=== PATIENT | male | born 1935 | race Caucasian/White ===

== ENCOUNTER 2016-12-29 14:34 | Inpatient (IN) | payer MEDICARE, OTHER ==
--- NOTE | ~2016-12-29 | HP ---
History And Physical [place] [id number] [place]. [address] NAME: BROOKE KAY : 35 STATUS : ADM IN [facility]#: [id number] AGE: 81 ADM/REG DATE : 12/29/16 MR#: [id number] REPORT SERV DATE: 12/30/16 DICTATED BY: BESSIE VALERIO DATE: 12/30/16 REPORT STATUS : Draft TRANSCRIBED BY: MODChen DATE: 12/30/16 DATE OF ADMISSION: 12/29/2016 CHIEF COMPLAINT: Chest pain. HISTORY OF PRESENT ILLNESS: This is an 81-year-old gentleman with medical history of hypothyroidism, dyslipidemia, BPH, pancreatic insufficiency on pancreatic lipase who presented to the hospital with complaints of right-sided chest pain. The patient reports that he had a ground-level fall about a week ago while he was trying to get into his car. He suffered bruises to his face as well as to his right wrist. EMS was called to the scene. The patient was evaluated at the scene but did not go to the hospital. The patient noted that he had no loss of consciousness, no palpitation, no presyncopal or syncopal episode. He attributed the fall likely due to slip and fall. The patient reports that he was doing well until three days prior to presentation where he developed mild shortness of breath initially but progressively got worse. Also noted pleuritic chest pain on the right side which progressively got worse. Hence, the patient went to his primary care physician for further evaluation. At the primary care physician's office, the patient had a chest x-ray that confirmed the presence of right sided pneumothorax. The patient was then advised to come to the emergency room immediately for further evaluation. On arrival to the emergency room, the patient had a chest tube placed by the emergency room physician. A repeat chest x-ray showed that chest tube is in place with good reexpansion of the lungs. At the time of my evaluation, the patient reports significant improvement in the right-sided pleuritic chest pain, continues to have some mild shortness of breath. No associated fever, chills, cough, palpitations, presyncope, or syncopal episode. PAST MEDICAL HISTORY: 1. Hypothyroidism on levothyroxine. 2. BPH. 3. Renal insufficiency on pancreatic lipase. 4. Dyslipidemia. 5. Chronic kidney disease stage 3, last known creatinine was 3.0. ALLERGIES: NO KNOWN DRUG ALLERGIES. SOCIAL HISTORY: Denies smoking cigarettes, and drinks 2-3 glasses of wine a day. Denies any marijuana or recreational drug use. 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 Recently moved to the [facility] about less than a year ago. FAMILY HISTORY: No family history of lung cancer, coronary artery disease, hypertension, or CVA. PAST SURGICAL HISTORY: Repair of the right femur fracture. REVIEW OF SYSTEMS: A 12-point review of systems conducted. Positive findings as per HPI. All other systems History And Physical [address] [address] NAME: BROOKE KAY : 35 STATUS : ADM IN [facility]#: [id number] AGE: 81 ADM/REG DATE : 12/29/16 MR#: [id number] REPORT SERV DATE: 12/30/16 DICTATED BY: BESSIE VALERIO DATE: 12/30/16 REPORT STATUS : Draft TRANSCRIBED BY: AVRIL DATE: 12/30/16 essentially negative. PHYSICAL EXAMINATION: VITAL SIGNS: Blood pressure 151/90, temperature 98, pulse 77 beats per minute, respiratory rate 14 cycles per minute, SpO2 saturating 100% on 3 L of oxygen. GENERAL: In mild respiratory distress. Lying comfortably in bed. HEENT: Normocephalic atraumatic. Extraocular muscle intact. Pupils are equal, round, and reactive. Not pale. No jaundice. Anicteric. NECK: No JVD. No cervical lymphadenopathy. CHEST: Right-sided tenderness with chest tube in place. No drainage around the chest tube. Chest tube connected to underwater seal. CARDIOVASCULAR: Regular rate and rhythm. S1-S2. No murmurs, no rubs, no gallops. ABDOMEN: Bowel sounds normoactive. Soft, nontender. No palpably enlarged organomegaly. EXTREMITIES: Lower extremities, no pedal edema. NEURO: Alert and oriented x3. Cranial nerve 2 through 12 intact. Strength 5/5 in all extremities. LABORATORY DATA: Hematology; WBC 11.9, hemoglobin 12.9, hematocrit 37.6, platelets 192, PT 14.6, INR 1.2. Chemistry; sodium 142, potassium 3.8, chloride 109, bicarb 20, BUN 32, creatinine 3.42, GFR 16. Glucose 125, calcium 8.5, magnesium 1.5. Troponin 0.07. Chest x-rays post chest tube placement impression: 1. Small bore right chest tube in place with a right apical pneumothorax. 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 ASSESSMENT AND PLAN: 1. Right-sided pneumothorax status post chest tube placement. 2. Acute kidney injury on chronic kidney disease. 3. Hypothyroidism. 4. Leukocytosis. 5. Elevated troponin. 6. Hypomagnesemia. PLAN: 1. Right-sided pneumothorax status post chest tube placement. The patient is currently connected to underwater seal. Pulmonology has been consulted to assist in the management of the patient's chest tube. At this time, the patient is currently stable. We will continue high flow oxygen and continue to monitor patient's status. We will repeat daily chest x-ray and follow Pulmonary recommendations. 2. Acute kidney injury on chronic kidney disease per patient, last known creatinine was 3.0. Here, the creatinine is 3.42. Etiology may have to relate with chronic use of NSAIDs at home. I will discontinue all NSAID therapy. We will continue patient on gentle IV fluids. We will obtain a bilateral renal ultrasound. History And Physical [address] [address] NAME: BROOKE KAY : 35 STATUS : ADM IN [facility]#: [id number] AGE: 81 ADM/REG DATE : 12/29/16 MR#: [id number] REPORT SERV DATE: 12/30/16 DICTATED BY: BESSIE VALERIO DATE: 12/30/16 REPORT STATUS : Draft TRANSCRIBED BY: MODL DATE: 12/30/16 3. Elevated troponin likely due to NSTEMI, likely due to demand ischemia versus evidence of chronic kidney disease. At this time, we will trend the patient's troponin. No evidence of ischemia at this time. EKG did not show any ST-T wave elevation. 4. Hypothyroidism. We will resume patient's home dose of levothyroxine. We will check a TSH and free T4. 5. Leukocytosis, likely reactional. No evidence of fever, chills, or cough at this time. We will hold off any antibiotics, obtain blood cultures, obtain urinalysis. Then, we will follow up. 6. Hypomagnesemia with magnesium of 1.5. We will treat magnesium per electrolyte protocol. 7. Code status. Full code. Admission disposition; telemetry. 8. Admission status, inpatient. IOO/MODL Bessie Valerio MD / [id number] CC: Bessie Valerio MD
--- NOTE | ~2016-12-29 | CN ---
Consultation Report [facility] [address] [place]. [address] NAME: BROOKE COLMENARES : 35 STATUS : ADM IN PAT#: [id number] AGE: 81 ADM/REG DATE : 12/29/16 MR#: [id number] REPORT SERV DATE: 12/29/16 DICTATED BY: RENNY PALACIOS DATE: 12/29/16 REPORT STATUS : Draft TRANSCRIBED BY: MODL DATE: 12/29/16 CONSULTATION NOTE DATE OF CONSULTATION: 12/29/2016 CHIEF COMPLAINT: Pneumothorax, status post chest tube placement. HISTORY OF PRESENT ILLNESS: Mr. Brooke Colmenares is a very pleasant 81-year-old white male with a past medical history significant for hypothyroidism, dyslipidemia, and pancreatic insufficiency who presents to [facility]'s Emergency Room with complaints of shortness of breath and right-sided pleuritic pain after sustaining a recent fall. It should be noted that Mr. Colmenares is usually in quite good health and has not been in the hospital recently. Mr. Colmenares is not currently followed by a extrusion die coordinator. He does not usually require supplemental oxygen. He is on no bronchodilators. He denies any past tobacco abuse. He denies symptomatology related to obstructive sleep apnea. He describes his exercise tolerance as being excellent. Mr. Colmenares states that while arriving to a [employer] at the [place], he fell on his descent to the ground, he suffered abrasions to his hand as well as striking his face. He did receive some mild trauma to his chest. Within one to two days after this, he began to experience some right-sided pleuritic pain. This became progressively worse and culminated in his presentation to [facility]'s Emergency Room. Upon arrival, his white blood count was 11,900. Creatinine was 3.42. He did eventually have a small bore chest tube placed within the right thorax with a small residual pneumothorax appreciated. For the aforementioned reasons, he has been referred to the Pulmonary Service for further assessment. Currently, the patient is resting comfortably in the emergency room. He does have a chest tube placed in the posterior aspect of the right thorax. He is in no respiratory distress. He is on supplemental oxygen at 3 liters with good oxygenation. He states that his pleuritic pain has improved. He is not producing any purulent sputum. He is not wheezing. He denies past pneumonias or recurrent upper respiratory infections. The patient has a history of hypertension as well as dyslipidemia. He has managed to eat to some degree with some diet changes. He denies any murmurs, angina, or palpitations. He denies any paroxysmal nocturnal dyspnea or orthopnea. In regard to constitutional symptoms, he currently denies fever, chills, nausea, vomiting, abdominal pain, or edema. PAST MEDICAL HISTORY: 1. Hypothyroidism. 2. Pancreatic insufficiency. Consultation Report [address] [address] NAME: BROOKE COLMENARES : 35 STATUS : ADM IN PAT#: [id number] AGE: 81 ADM/REG DATE : 12/29/16 MR#: [id number] REPORT SERV DATE: 12/29/16 DICTATED BY: RENNY PALACIOS DATE: 12/29/16 REPORT STATUS : Draft TRANSCRIBED BY: AVRIL DATE: 12/29/16 3. Hypertension. PAST SURGICAL HISTORY: Fracture of right femur. SOCIAL HISTORY: The patient is . 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 He denies any known exposures to dust, silica, or asbestos. FAMILY HISTORY: The patient denies family history of lung disease. TOBACCO/ALCOHOL: As previously mentioned, the patient describes himself as a never smoker. MEDICATIONS: 1. Acetaminophen. 2. Aspirin 325 mg. 3. Levothyroxine 200 mcg. 4. Creon. 5. Mirtazapine 15 mg. 6. Naproxen 220 mg. 7. Tamsulosin 0.5 mg. ALLERGIES: THE PATIENT HAS NO KNOWN DRUG ALLERGIES. REVIEW OF SYSTEMS: A complete review of systems was performed with the pertinent positives and negatives contained within the body of the HPI. PHYSICAL EXAMINATION: VITAL SIGNS: Blood pressure is 155/91, heart rate is 78, T-max is 98.6, respiratory rate is 24, and SpO2 is 99% on 3 liters. GENERAL: The patient is a pleasant, well-nourished and well-developed 81-year-old white male who is not currently exhibiting any signs of acute distress. Skin: There is a posterior lesion on the right shoulder. Nails are clear without cyanosis or clubbing. HEENT: Head: Abrasion is noted over right eye. Eyes: Sclera anicteric, conjunctiva pink without exudates. Extra ocular movements intact. Pupils are equal, round, reactive to light. Ears: Auricles and tragus without pain to palpation. Hearing is grossly intact. Nose: Abrasion appreciated. Bilateral nasal patency. Sinuses without tenderness upon palpation. Throat: Dentition. Lips, oral mucosa, tongue, palate, and pharynx pink and moist without lesions. Uvula rises equally on phonation. Tongue midline without deviation. NECK: Neck supple. Trachea midline. No cervical lymphadenopathy appreciated. THORAX/LUNGS: Inspiratory crackles in the posterior right lung deluna. CARDIOVASCULAR: Regular rate and rhythm. No murmurs, rubs, or gallops. Anterior chest without thrills, heaves, or lifts. Consultation Report [place] [id number] [facility] [place]. [address] NAME: BROOKE COLMENARES : 35 STATUS : ADM IN [facility]#: [id number] AGE: 81 ADM/REG DATE : 12/29/16 MR#: [id number] REPORT SERV DATE: 12/29/16 DICTATED BY: RENNY PALACIOS DATE: 12/29/16 REPORT STATUS : Draft TRANSCRIBED BY: AVRIL DATE: 12/29/16 ABDOMEN: Soft. Non-distended, non-tender. Active bowel sounds in all four quadrants. No hepatosplenomegaly noted. PERIPHERAL VASCULAR: No edema. No varicosities, stasis changes, open sores, ulcerations, or phlebitis. 2+ pulses in radial and dorsalis pedis. MUSCULOSKELETAL: Full AROM and PROM in all joints. No evidence of erythema, deformity, or crepitus. NEUROLOGIC: CN II - XII grossly intact. Good muscle bulk and tone bilaterally. Strength 5/5 throughout. PSYCHIATRIC: Patient demonstrates good judgment and insight. Pt is A&O x 3. ACCESSORY DATA: Reveals a creatinine of 3.42. Mag is 1.5. White blood cell count is 11,900. Chest x-ray reveals small bore chest tube in the right chest with a small apical pneumothorax. IMPRESSION: 1. Right-sided pneumothorax secondary to trauma. 2. Acute hypoxemic respiratory failure. 3. Elevated creatinine. 4. Hypothyroidism. 5. Hypertension. PLAN: At this time, a chest tube has already been placed with good reexpansion of the lung. We will keep the patient on suction overnight and obtain a chest x-ray in the morning. If there is continued re-expansion of the lung without air leak, we will place the patient on water-seal and work towards removing the chest tube. The aforementioned impression and plan has been discussed with Dr. Taylor who will follow further recommendations. We thank you for this consult and look for to participating in the care of Mr. Brooke Colmenares. GBS/MODL Renny Palacios PA-C / [id number] CC: Bessie Haskins MD
--- NOTE | ~2016-12-29 | OP ---
Record Of Operation [facility] [address] [place]. [address] NAME: BROOKE KAY : 35 STATUS : ADM IN [facility]#: [id number] AGE: 81 ADM/REG DATE : 12/29/16 MR#: [id number] REPORT SERV DATE: 12/30/16 DICTATED BY: KARTHIK TAYLOR DATE: 12/30/16 REPORT STATUS : Draft TRANSCRIBED BY: MODL DATE: 12/30/16 DATE OF PROCEDURE: 12/30/2016 PREPROCEDURE DIAGNOSIS: Right pneumothorax. POSTPROCEDURE DIAGNOSIS: Right pneumothorax. PROCEDURE: Pneumodart chest tube. PROOF MACHINE OPERATOR SUPERVISOR: Endoscopy nurse as well as Ray Antoine, physician employee relations assistant. DESCRIPTION: Informed consent was obtained both verbal and written from the patient. Risks and benefits discussed and side affects addressed. All questions answered. The patient was brought down to the endoscopy suite after we discovered a worsening of his right-sided pneumothorax. His current chest tube that is in the right axillary line, was clogged and was unable to be reopened which accounted for the recurrence of the pneumothorax. We used ultrasound on the anterior right chest to identify a lack of lung sliding at the right anterior 2nd intercostal space. M-mode showed a bar code sign. We did print out imaging and fixed to chart. The patient was put in the semirecumbent position and both myself and Ray Antoine were gowned and sterile technique was used to maintain throughout the entire procedure. Ray Antoine performed all critical elements of the procedure while I had close observation. 1% lidocaine was injected into the right anterior chest after chlorhexidine was used to clean the chest and the chest had a sterile work area in place. 1% lidocaine was used locally to reduce pain. We injected lidocaine all the way down to the parietal pleura. The main chest tube needle was then inserted into the right anterior chest wall at the 2nd intercostal space. This was done after a slight scalpel neck was introduced into the skin to make easier passage from the needle. We were able to gain access to the pleural space with the introducer needle and passed the catheter. We then attached the catheter to the flutter valve, sutured down the catheter, and dressed the catheter. We will get a postprocedure chest x-ray. There was no blood loss. No complications. CEP/MODL Karthik Taylor DO / [id number] CC: Jeffrey Pringle MD
--- NOTE | ~2016-12-29 | DS ---
Discharge Summary [id number] [place]. [address] NAME: BROOKE COLMENARES : 35 STATUS : DIS IN PAT#: [id number] AGE: 81 ADM/REG DATE : 12/29/16 MR#: [id number] REPORT SERV DATE: 01/03/17 DICTATED BY: JEFFREY FUENTES DATE: 01/03/17 REPORT STATUS : Draft TRANSCRIBED BY: MODL DATE: 01/03/17 ADMISSION DATE: 12/29/2016 DISCHARGE DATE: 01/03/2017 DISCHARGE DIAGNOSES: 1. Right traumatic pneumothorax. 2. Acute hypoxic respiratory failure. 3. Acute kidney injury with chronic kidney disease, baseline creatinine 3. 4. Hypertension. 5. Hypothyroidism. 6. Hypomagnesemia. CONSULTATIONS: Pulmonary. DISCHARGE FOLLOWUP: Follow up with Dr. Chirinos, follow up for BMP, renal ultrasound findings, and chest x-ray. Additionally, follow up with Nephrology in three weeks for CKD and abnormal ultrasound, long history of CKD. DISCHARGE MEDICATIONS: 1. Norvasc 10 mg one tab p.o. daily, new medication. 2. Aspirin 81 mg one tab p.o. daily over the counter. 3. The patient to hold ibuprofen and Aleve. 4. Coreg 3.125 mg one tab p.o. b.i.d. 5. Synthroid 200 mcg p.o. daily. 6. Creon 5000 units p.o. daily. 7. Remeron 15 mg one tab p.o. q.h.s. 8. Flomax 0.4 mg one tab p.o. daily. 9. Vitamin C, vitamin D, fiber, B12, Tums over the counter. 10.Tylenol p.r.n. over the counter. 11.Docusate 100 mg one tab p.o. daily. HOSPITAL COURSE: Please see H and P for complete details. HISTORY OF PRESENT ILLNESS: Briefly, Mr. 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 The patient was supportively monitored and watched for resolution. Tolerated procedure well. Did have mild manipulation of position for completion resolution. Incidentally, the patient was noted to be in mild RAMON from baseline CKD, as the patient reports his creatinine is typically 3. Ultrasound was performed, left kidney with several stones, right kidney demonstrating some subtle cortical changes suggesting some medical parenchymal disease. Along the superior aspect of the right kidney, there is 0.9 x 0.9 x 1 cm hypoechoic area. This is not fully characterized as benign. Aorta, vena cava, and urinary bladder are normal. Because of the indeterminate nature of the right upper pole structure, recommended repeat ultrasound augmented with new ultrasound contrast agent for further evaluation to exclude malignancy. This will need to be followed up with PCP and Pulmonology. The patient was able to be weaned off oxygen, had Discharge Summary [address] [address] NAME: BROOKE COLMENARES : 35 STATUS : DIS IN PAT#: [id number] AGE: 81 ADM/REG DATE : 12/29/16 MR#: [id number] REPORT SERV DATE: 01/03/17 DICTATED BY: JEFFREY FUENTES DATE: 01/03/17 REPORT STATUS : Draft TRANSCRIBED BY: MODL DATE: 01/03/17 resolution of pneumothorax. Activity was able to be increased. The patient was also started on amlodipine and Coreg for hypertension. The patient's electrolytes and magnesium were replaced and the patient was continued on home Synthroid for his hypothyroidism. All questions were answered with the patient prior to discharge. The patient was ambulatory and feeling well. Follow up with Dr. Chirinos post discharge. Thank you, Dr. Chirinos, for allowing us to assist in the care of this patient. DDN/MODL Jeffrey Fuentes MD / [id number] CC: Jeffrey Fuentes MD
[2016-12-29 13:52] LABS: BASOPHILS 0.2 %; BASOPHILS ABSOLUTE 0.02 10/3/uL (0.0-0.16); EOSINOPHILS 0.4 %; EOSINOPHILS ABSOLUTE 0.05 10/3/uL (0.0-0.53); ER CBC TAT 0 Hrs 05 Mins; HEMATOCRIT 37.6 % (40.0-51.0); HEMOGLOBIN 12.9 g/dL (13.6-17.8); IMMATURE GRANULOCYTES 0.2 %; IMMATURE GRANULOCYTES ABSOLUTE 0.02 10/3/uL (0.0-0.11); LYMPHOCYTES 11.8 %; MEAN CORPUS HGB CONC 34.3 g/dL (32.0-36.0); MEAN CORPUSCULAR HEMOGLOB 34.8 pg (26.0-34.0); MEAN CORPUSCULAR VOLUME 101.3 fL (80-100); MEAN PLATELET VOLUME 10.4 fL (9.2-13.0); MONOCYTES 7.2 %; MONOCYTES ABSOLUTE 0.86 10/3/uL (0.21-1.20); NEUTROPHILS 80.2 %; NEUTROPHILS ABSOLUTE 9.54 10/3/uL (2.02-8.40); PLATELET COUNT 192 10/3/uL (150-400); RBC DISTRIBUTION WIDTH 13.7 % (12.0-16.0); RED CELL COUNT 3.71 10/6/uL (4.7-6.1); WHITE BLOOD CELLS 11.9 10/3/uL (4.5-10.5)
[2016-12-29 13:54] LABS: MANUAL DIFF NO %
[2016-12-29 13:59] LABS: INTERNATIONAL NORMAL RATI 1.2 UNITS (-); PARTIAL THROMBO TIME 26.3 SEC (22.5-37.2); PROTIME (NOT ORD) 14.6 SEC (12.0-14.5)
[2016-12-29 14:08] LABS: BUN (BLOOD UREA NITROGEN) 32 MG/DL (6-23); CALCIUM, SERUM 8.5 MG/DL (8.5-10.4); CHLORIDE, SERUM 109 MMOL/L (96-112); CO2 (CARBON DIOXIDE) 20 MMOL/L (24-34); CREATININE 3.42 MG/DL (0.70-1.30); GFR AFRICAN AMERICAN 18 ML/MIN (>=60); GFR NON AFRICAN AMERICAN 16 ML/MIN (>=60); GLUCOSE, SERUM 128 MG/DL (60-99); POTASSIUM, SERUM 3.8 MMOL/L (3.5-5.3); SODIUM, SERUM 142 MMOL/L (135-148)
[2016-12-29 14:09] LABS: CHEST PAIN PROFILE TAT 0 Hrs 22 Mins; TROPONIN I 0.07 NG/ML (<0.05)
[~2016-12-29 14:34] MED LIST: ACET500CAP PO; ADVIL PO; ALEVE220 MG PO; ASABAYER PO; CREON DR 3,0001 EACH PO; CYANOCOBALAMIN PO; D.O.S.100 MG PO; FIBER OTC PO; FLOMAX4 PO; REM15 PO; SYNTHROID200 MCG PO; Tums PO; VITAMIN C PO; VITAMIN D PO
[2016-12-29 18:53] LABS: FREE T4 1.31 NG/DL (0.76-1.46); ULTRASENSITIVE TSH 0.733 MCIU/ML (0.358-3.740)
[2016-12-29 18:55] LABS: TROPONIN I 0.05 NG/ML (<0.05)
[2016-12-30 06:22] LABS: BASOPHILS 0.3 %; BASOPHILS ABSOLUTE 0.03 10/3/uL (0.0-0.16); EOSINOPHILS 2.4 %; EOSINOPHILS ABSOLUTE 0.24 10/3/uL (0.0-0.53); HEMATOCRIT 37.8 % (40.0-51.0); IMMATURE GRANULOCYTES 0.2 %; IMMATURE GRANULOCYTES ABSOLUTE 0.02 10/3/uL (0.0-0.11); LYMPHOCYTES 18.5 %; LYMPHOCYTES ABSOLUTE 1.85 10/3/uL (0.67-4.30); MEAN CORPUS HGB CONC 34.4 g/dL (32.0-36.0); MEAN CORPUSCULAR HEMOGLOB 35.1 pg (26.0-34.0); MEAN CORPUSCULAR VOLUME 102.2 fL (80-100); MEAN PLATELET VOLUME 10.8 fL (9.2-13.0); MONOCYTES 6.4 %; MONOCYTES ABSOLUTE 0.64 10/3/uL (0.21-1.20); NEUTROPHILS 72.2 %; NEUTROPHILS ABSOLUTE 7.21 10/3/uL (2.02-8.40); PLATELET COUNT 185 10/3/uL (150-400); RBC DISTRIBUTION WIDTH 13.4 % (12.0-16.0)
[2016-12-30 06:23] LABS: MANUAL DIFF NO %
[2016-12-30 06:39] LABS: BUN (BLOOD UREA NITROGEN) 33 MG/DL (6-23); CALCIUM, SERUM 8.3 MG/DL (8.5-10.4); CHLORIDE, SERUM 109 MMOL/L (96-112); CO2 (CARBON DIOXIDE) 20 MMOL/L (24-34); CREATININE 3.31 MG/DL (0.70-1.30); GFR AFRICAN AMERICAN 19 ML/MIN (>=60); GFR NON AFRICAN AMERICAN 17 ML/MIN (>=60); GLUCOSE, SERUM 110 MG/DL (60-99); PHOSPHORUS, SERUM 4.3 MG/DL (2.5-4.5); POTASSIUM, SERUM 4.1 MMOL/L (3.5-5.3); SODIUM, SERUM 142 MMOL/L (135-148)
[2016-12-30 06:56] LABS: ASCORBIC ACID (UR NOT ORDER) NEG (NEG); BILIRUBIN, URINE NEGATIVE (NEG); KETONE, URINE NEGATIVE (NEG); LEUKOCYTE ESTERASE(NOT OR NEG (NEG); WBC (NOT ORDERED) (RFLEX) 3 (0-5)
[2016-12-31 05:19] LABS: BASOPHILS 0.3 %; BASOPHILS ABSOLUTE 0.03 10/3/uL (0.0-0.16); EOSINOPHILS 2.9 %; EOSINOPHILS ABSOLUTE 0.27 10/3/uL (0.0-0.53); HEMATOCRIT 37.9 % (40.0-51.0); HEMOGLOBIN 12.8 g/dL (13.6-17.8); IMMATURE GRANULOCYTES 0.2 %; IMMATURE GRANULOCYTES ABSOLUTE 0.02 10/3/uL (0.0-0.11); LYMPHOCYTES 11.8 %; LYMPHOCYTES ABSOLUTE 1.11 10/3/uL (0.67-4.30); MEAN CORPUS HGB CONC 33.8 g/dL (32.0-36.0); MEAN CORPUSCULAR HEMOGLOB 34.5 pg (26.0-34.0); MEAN CORPUSCULAR VOLUME 102.2 fL (80-100); MEAN PLATELET VOLUME 10.8 fL (9.2-13.0); MONOCYTES 6.4 %; NEUTROPHILS 78.4 %; NEUTROPHILS ABSOLUTE 7.41 10/3/uL (2.02-8.40); PLATELET COUNT 186 10/3/uL (150-400); RBC DISTRIBUTION WIDTH 13.4 % (12.0-16.0); RED CELL COUNT 3.71 10/6/uL (4.7-6.1); WHITE BLOOD CELLS 9.4 10/3/uL (4.5-10.5)
[2016-12-31 05:22] LABS: MANUAL DIFF NO %
[2016-12-31 05:33] LABS: A/G RATIO 0.7 (0.7-1.9); ALBUMIN 2.9 G/DL (3.5-5.0); ALKALINE PHOSPHATASE 72 U/L (45-117); BUN (BLOOD UREA NITROGEN) 34 MG/DL (6-23); CALCIUM, SERUM 8.4 MG/DL (8.5-10.4); CHLORIDE, SERUM 108 MMOL/L (96-112); CO2 (CARBON DIOXIDE) 21 MMOL/L (24-34); CREATININE 3.16 MG/DL (0.70-1.30); GFR AFRICAN AMERICAN 20 ML/MIN (>=60); GFR NON AFRICAN AMERICAN 17 ML/MIN (>=60); GLOBULIN 4.1 G/DL (2.5-4.1); GLUCOSE, SERUM 108 MG/DL (60-99); POTASSIUM, SERUM 4.1 MMOL/L (3.5-5.3); SGOT(AST) 13 U/L (5-40); SGPT(ALT) 14 U/L (5-65); SODIUM, SERUM 140 MMOL/L (135-148); TOTAL BILIRUBIN 0.5 MG/DL (0-1.2)
[2017-01-01 05:45] LABS: BASOPHILS 0.3 %; BASOPHILS ABSOLUTE 0.02 10/3/uL (0.0-0.16); EOSINOPHILS 4.4 %; EOSINOPHILS ABSOLUTE 0.27 10/3/uL (0.0-0.53); HEMOGLOBIN 11.4 g/dL (13.6-17.8); IMMATURE GRANULOCYTES 0.3 %; IMMATURE GRANULOCYTES ABSOLUTE 0.02 10/3/uL (0.0-0.11); LYMPHOCYTES 27.4 %; LYMPHOCYTES ABSOLUTE 1.69 10/3/uL (0.67-4.30); MEAN CORPUS HGB CONC 34.2 g/dL (32.0-36.0); MEAN CORPUSCULAR HEMOGLOB 34.5 pg (26.0-34.0); MEAN CORPUSCULAR VOLUME 100.9 fL (80-100); MEAN PLATELET VOLUME 10.2 fL (9.2-13.0); MONOCYTES 6.8 %; MONOCYTES ABSOLUTE 0.42 10/3/uL (0.21-1.20); NEUTROPHILS 60.8 %; NEUTROPHILS ABSOLUTE 3.75 10/3/uL (2.02-8.40); PLATELET COUNT 175 10/3/uL (150-400); RBC DISTRIBUTION WIDTH 13.4 % (12.0-16.0); WHITE BLOOD CELLS 6.2 10/3/uL (4.5-10.5)
[2017-01-01 05:48] LABS: HEMATOCRIT 33.3 % (40.0-51.0); MANUAL DIFF NO %
[2017-01-01 06:05] LABS: ALBUMIN 2.5 G/DL (3.5-5.0); BUN (BLOOD UREA NITROGEN) 37 MG/DL (6-23); CALCIUM, SERUM 8.1 MG/DL (8.5-10.4); CHLORIDE, SERUM 111 MMOL/L (96-112); CO2 (CARBON DIOXIDE) 20 MMOL/L (24-34); CREATININE 2.86 MG/DL (0.70-1.30); GFR AFRICAN AMERICAN 23 ML/MIN (>=60); GFR NON AFRICAN AMERICAN 20 ML/MIN (>=60); GLUCOSE, SERUM 100 MG/DL (60-99); PHOSPHORUS, SERUM 4.2 MG/DL (2.5-4.5); POTASSIUM, SERUM 3.7 MMOL/L (3.5-5.3); SODIUM, SERUM 141 MMOL/L (135-148)
[2017-01-03] MEDS ORDERED: NORV10 PO (10:57)
[2017-01-03] MEDS ORDERED: COREG3 PO (10:58)
== END 2017-01-03 14:38 | disposition home or self-care (01) | DRG 199 ==
LOC: ER 14:34 → 5NO 16:21
PROVIDERS: Emergency Medicine; Hospitalist; Internal Medicine Pulmonary Disease; Student in an Organized Health Care Education/Training Program
PROC: 0W9930Z Drainage of Right Pleural Cavity with Drainage Device, Percutaneous Approach (ICD-10-PCS; principal; 2016-12-30 13:09)
DX: S27.0XXA Traumatic pneumothorax, initial encounter (principal); J96.01 Acute respiratory failure with hypoxia; N17.9 Acute kidney failure, unspecified; E03.9 Hypothyroidism, unspecified; E83.42 Hypomagnesemia; N18.9 Chronic kidney disease, unspecified; W01.0XXA Fall on same level from slipping, tripping and stumbling without subsequent striking against object, initial encounter; Y93.9 Activity, unspecified; Y92.89 Other specified places as the place of occurrence of the external cause; I12.9 Hypertensive chronic kidney disease with stage 1 through stage 4 chronic kidney disease, or unspecified chronic kidney disease; N20.0 Calculus of kidney; Z23 Encounter for immunization; N40.0 Benign prostatic hyperplasia without lower urinary tract symptoms; N32.9 Bladder disorder, unspecified; E78.00 Pure hypercholesterolemia, unspecified; E55.9 Vitamin D deficiency, unspecified
CPT/HCPCS: 71010; 71020; 71100; 76775; 80048; 80053; 80069; 81001; 82962; 83735; 84439; 84443; 84484; 85025; 85610; 85730; 87040; 90662; 93005; 99285; A9270-GY; G0008